=== PATIENT | female | born 1975 | race Caucasian/White ===

== ENCOUNTER → 2017-07-01 | Outpatient (CLI) | payer BC | END | disposition home or self-care (01) | LOC: CDC 10:02 | DX: Z13.6 Encounter for screening for cardiovascular disorders (principal) | CPT/HCPCS: 93000 ==

== ENCOUNTER 2017-12-10 12:02 | Outpatient (CLI) | payer BC ==
[~2017-12-10] VITALS: Ht 165.1 cm; Wt 115.2 kg
[2017-12-10] VITALS (8 sets, daily range): BP systolic 120–145; BP diastolic 69–82
[2017-12-10] MEDS ORDERED: LOW DOSE ASPIRI81 M1 PO (12:40)
[2017-12-10] MEDS ORDERED: IRON325 M1 PO (12:40)
[2017-12-10] MEDS ORDERED: PRENATAL TABLE1 EACH PO (12:41)
[2017-12-10 13:08] LABS: APPEARANCE CLOUDY ((CLEAR)); BILIRUBIN NEGATIVE; BLOOD NEGATIVE; COLOR AMBER ((YELLOW)); GLUCOSE (STRIP) NEGATIVE; KETONES NEGATIVE; LEUKOCYTES NEGATIVE; NITRITE NEGATIVE; PROTEIN (STRIP) 100; SPECIFIC GRAVITY 1.025 (1.000-1.030)
[2017-12-10 13:11] LABS: BASOPHIL (%) 0.4 % (0-1); EOSINOPHIL (%) 2.5 % (0-5); EOSINOPHIL COUNT 0.2 K/uL (0-0.3); HEMATOCRIT 36.5 % (36.0-46.0); HEMOGLOBIN 12.7 G/DL (11.9-15.5); IMMATURE GRANULOCYTE (%) 0.5 % (0.0-0.7); LYMPHOCYTE (%) 11.6 % (15-42); LYMPHOCYTE COUNT 0.9 K/uL (1.0-2.8); MCH 31.4 PG (29.0-34.0); MCHC 34.8 G/DL (30.0-36.0); MCV 90.1 FL (83-99); MONOCYTE (%) 7.1 % (3-12); MONOCYTE COUNT 0.6 K/uL (0-0.8); NEUTROPHIL (%) 77.9 % (45-76); PLATELET COUNT 122 K/uL (156-360); RBC DIS.WIDTH-CV 13.1 % (11.8-14.6); RBC DIS.WIDTH-SD 42.8 % (39-53); RED BLOOD COUNT 4.05 M/uL (3.80-5.20); WHITE BLOOD COUNT 7.8 K/uL (4.1-10.2)
[2017-12-10 13:19] LABS: ALBUMIN 2.7 g/dL (3.2-4.8); CHLORIDE 109 mEq/L (99-109); POTASSIUM 4.1 mEq/L (3.7-5.4); SODIUM 137 mEq/L (136-147)
[2017-12-10 13:21] LABS: GLUCOSE 73 mg/dL (70-99)
[2017-12-10 13:22] LABS: TOTAL PROTEIN 5.4 g/dL (6.4-8.3)
[2017-12-10 13:23] LABS: TOTAL BILIRUBIN 0.3 mg/dL (0.0-1.0)
[2017-12-10 13:25] LABS: ALKALINE PHOSPHATASE 200 IU/L (3-129); CREATININE 0.8 mg/dL (0.6-1.3); GFR ESTIMATE (CALCULATED) > 59 mL/min/
[2017-12-10 13:26] LABS: UREA NITROGEN (BUN) 7 mg/dL (9-23)
[2017-12-10 13:27] LABS: AST (GOT) 22 IU/L (2-34)
[2017-12-10 13:27] LABS: BACTERIA 2+ /HPF; EPITHELIAL CELLS 2+ /HPF; MUCUS NONE SEEN /LPF; RED BLOOD CELLS 0-5 /HPF (0-5); UCUL ADDED? YES; WHITE BLOOD CELLS 0-5 /HPF (0-5)
[2017-12-10 13:28] LABS: ALT (GPT) 10 IU/L (3-49)
[2017-12-11 03:00] VITALS: BP 125/68
[2017-12-11 06:16] LABS: BASOPHIL (%) 0.6 % (0-1); EOSINOPHIL (%) 2.8 % (0-5); EOSINOPHIL COUNT 0.2 K/uL (0-0.3); HEMATOCRIT 34.4 % (36.0-46.0); HEMOGLOBIN 11.5 G/DL (11.9-15.5); IMMATURE GRANULOCYTE (%) 0.6 % (0.0-0.7); LYMPHOCYTE (%) 16.6 % (15-42); LYMPHOCYTE COUNT 1.2 K/uL (1.0-2.8); MCH 30.4 PG (29.0-34.0); MCHC 33.4 G/DL (30.0-36.0); MONOCYTE (%) 8.3 % (3-12); MONOCYTE COUNT 0.6 K/uL (0-0.8); NEUTROPHIL (%) 71.1 % (45-76); NEUTROPHIL COUNT 5.2 K/uL (1.8-6.4); PLATELET COUNT 104 K/uL (156-360); RBC DIS.WIDTH-CV 13.2 % (11.8-14.6); RBC DIS.WIDTH-SD 43.4 % (39-53); RED BLOOD COUNT 3.78 M/uL (3.80-5.20); WHITE BLOOD COUNT 7.3 K/uL (4.1-10.2)
[2017-12-11 06:46] LABS: ALBUMIN 2.3 G/DL (3.2-4.8); ALKALINE PHOSPHATASE 162 IU/L (3-129); ALT (GPT) 7 IU/L (3-49); AST (GOT) 13 IU/L (2-34); CHLORIDE 106 MEQ/L (99-109); GFR ESTIMATE (CALCULATED) > 59 mL/min/; GLUCOSE 57 mg/dL (70-99); POTASSIUM 3.9 MEQ/L (3.7-5.4); SODIUM 136 MEQ/L (136-147); TOTAL BILIRUBIN 0.4 MG/DL (0.0-1.0); TOTAL PROTEIN 4.6 G/DL (6.4-8.3); UREA NITROGEN (BUN) 5 mg/dL (9-23)
[2017-12-11 06:47] LABS: CREATININE 0.3 MG/DL (0.6-1.3)
[2017-12-11 07:42] VITALS: BP 126/74
[2017-12-11 11:32] VITALS: BP 134/77
[2017-12-11 12:20] LABS: BASOPHIL (%) 0.4 % (0-1); EOSINOPHIL (%) 0.4 % (0-5); HEMOGLOBIN 12.8 G/DL (11.9-15.5); IMMATURE GRANULOCYTE (%) 0.5 % (0.0-0.7); LYMPHOCYTE (%) 7.8 % (15-42); LYMPHOCYTE COUNT 0.7 K/uL (1.0-2.8); MCH 30.5 PG (29.0-34.0); MCHC 33.7 G/DL (30.0-36.0); MCV 90.7 FL (83-99); MONOCYTE (%) 2.5 % (3-12); MONOCYTE COUNT 0.2 K/uL (0-0.8); NEUTROPHIL (%) 88.4 % (45-76); NEUTROPHIL COUNT 7.4 K/uL (1.8-6.4); PLATELET COUNT 134 K/uL (156-360); RBC DIS.WIDTH-CV 13.2 % (11.8-14.6); RBC DIS.WIDTH-SD 43.2 % (39-53); RED BLOOD COUNT 4.19 M/uL (3.80-5.20); WHITE BLOOD COUNT 8.4 K/uL (4.1-10.2)
[2017-12-11 14:51] VITALS: BP 124/65
[2017-12-11 18:29] LABS: 24 HR VOLUME 1750 MLS
[2017-12-11 23:43] VITALS: BP 130/72
[2017-12-12 06:08] LABS: BASOPHIL (%) 0.1 % (0-1); EOSINOPHIL (%) 0 % (0-5); HEMATOCRIT 34.7 % (36.0-46.0); HEMOGLOBIN 11.7 G/DL (11.9-15.5); IMMATURE GRANULOCYTE (%) 0.7 % (0.0-0.7); LYMPHOCYTE (%) 8.7 % (15-42); LYMPHOCYTE COUNT 0.9 K/uL (1.0-2.8); MCH 30.5 PG (29.0-34.0); MCHC 33.7 G/DL (30.0-36.0); MCV 90.4 FL (83-99); MONOCYTE (%) 5.5 % (3-12); MONOCYTE COUNT 0.6 K/uL (0-0.8); PLATELET COUNT 121 K/uL (156-360); RBC DIS.WIDTH-SD 42.4 % (39-53); RED BLOOD COUNT 3.84 M/uL (3.80-5.20); WHITE BLOOD COUNT 10.6 K/uL (4.1-10.2)
[2017-12-12 06:41] LABS: ALBUMIN 2.4 G/DL (3.2-4.8); ALKALINE PHOSPHATASE 172 IU/L (3-129); ALT (GPT) 8 IU/L (3-49); AST (GOT) 14 IU/L (2-34); CHLORIDE 104 MEQ/L (99-109); POTASSIUM 4.4 MEQ/L (3.7-5.4); SODIUM 133 MEQ/L (136-147); TOTAL PROTEIN 4.9 G/DL (6.4-8.3); UREA NITROGEN (BUN) 8 mg/dL (9-23)
[2017-12-12 06:45] LABS: CREATININE 0.8 MG/DL (0.6-1.3); GFR ESTIMATE (CALCULATED) > 59 mL/min/; GLUCOSE 90 mg/dL (70-99); TOTAL BILIRUBIN 0.3 MG/DL (0.0-1.0)
== END 2017-12-12 12:15 | disposition home or self-care (01) ==
LOC: LDRP-OP 12:02 → 2WEST 12:03 → LDRP-OP 02-11 17:07
PROVIDERS: Obstetrics & Gynecology
DX: O12.23 Gestational edema with proteinuria, third trimester (principal); O26.893 Other specified pregnancy related conditions, third trimester; R11.2 Nausea with vomiting, unspecified; O30.043 Twin pregnancy, dichorionic/diamniotic, third trimester; O09.513 Supervision of elderly primigravida, third trimester; Z3A.35 35 weeks gestation of pregnancy; Z83.3 Family history of diabetes mellitus
CPT/HCPCS: 59025; 80053; 81003; 81050; 82570; 84156; 85025; 85025 91; 87086; G0378; J0702

== ENCOUNTER 2017-12-25 05:29 | Inpatient (IN) | payer BC ==
[2017-12-25] VITALS (14 sets, daily range): BP systolic 135–181; BP diastolic 77–116
[~2017-12-25] VITALS: Ht 165.1 cm; Wt 120.5 kg
[~2017-12-25 05:29] MED LIST: FOLIC ACID1 MG PO; IRON325 M1 PO; LOW DOSE ASPIRI81 M1 PO; PRENATAL TABLE1 EACH PO
[2017-12-25 06:03] LABS: BASOPHIL (%) 0.4 % (0-1); EOSINOPHIL (%) 1.9 % (0-5); EOSINOPHIL COUNT 0.2 K/uL (0-0.3); IMMATURE GRANULOCYTE (%) 0.6 % (0.0-0.7); LYMPHOCYTE (%) 21.2 % (15-42); LYMPHOCYTE COUNT 1.9 K/uL (1.0-2.8); MCH 31.3 PG (29.0-34.0); MCHC 34.5 G/DL (30.0-36.0); MCV 90.7 FL (83-99); MONOCYTE (%) 7.3 % (3-12); MONOCYTE COUNT 0.7 K/uL (0-0.8); NEUTROPHIL (%) 68.6 % (45-76); NEUTROPHIL COUNT 6.2 K/uL (1.8-6.4); PLATELET COUNT 143 K/uL (156-360); RBC DIS.WIDTH-CV 13.2 % (11.8-14.6); RBC DIS.WIDTH-SD 43.7 % (39-53); RED BLOOD COUNT 4.41 M/uL (3.80-5.20); WHITE BLOOD COUNT 9.1 K/uL (4.1-10.2)
[2017-12-25 06:04] LABS: HEMOGLOBIN 13.8 G/DL (11.9-15.5)
[2017-12-25 06:43] LABS: AMPHETAMINE NEGATIVE (500 ng/mL); BARBITURATES NEGATIVE (200 ng/mL); BENZODIAZEPINES NEGATIVE (150 ng/mL); BUPRENORPHINE NEGATIVE (10 ng/mL); COCAINE NEGATIVE (150 ng/mL); METHADONE NEGATIVE (200 ng/mL); METHAMPHETAMINE NEGATIVE (500 ng/mL); OPIATES (MORPHINE) NEGATIVE (100 ng/mL); OXYCODONE NEGATIVE (100 ng/mL); PHENCYCLIDINE NEGATIVE (25 ng/mL); PROPOXYPHENE NEGATIVE (300 ng/mL); THC CANNABINOIDS NEGATIVE (50 ng/mL); TRICYCLIC ANTIDEPRESSANTS NEGATIVE (300 ng/mL)
[2017-12-25 09:14] LABS: CHLORIDE 109 mEq/L (99-109); POTASSIUM 4.3 mEq/L (3.7-5.4); SODIUM 139 mEq/L (136-147)
[2017-12-25 09:16] LABS: GLUCOSE 68 mg/dL (70-99); TOTAL PROTEIN 6.1 g/dL (6.4-8.3)
[2017-12-25 09:18] LABS: TOTAL BILIRUBIN 0.4 mg/dL (0.0-1.0)
[2017-12-25 09:20] LABS: ALKALINE PHOSPHATASE 235 IU/L (3-129); CREATININE 0.8 mg/dL (0.6-1.3); GFR ESTIMATE (CALCULATED) > 59 mL/min/
[2017-12-25 09:21] LABS: UREA NITROGEN (BUN) 7 mg/dL (9-23)
[2017-12-25 09:22] LABS: AST (GOT) 21 IU/L (2-34)
[2017-12-25 09:23] LABS: ALT (GPT) 14 IU/L (3-49)
[2017-12-25 09:50] LABS: UR CREATININE CONCENTRATION 157.6 MG/DL
[2017-12-26 02:52] VITALS: BP 140/74
[2017-12-26 06:17] LABS: BASOPHIL (%) 0.4 % (0-1); EOSINOPHIL (%) 0.6 % (0-5); EOSINOPHIL COUNT 0.1 K/uL (0-0.3); HEMATOCRIT 33.8 % (36.0-46.0); IMMATURE GRANULOCYTE (%) 0.6 % (0.0-0.7); LYMPHOCYTE (%) 16.4 % (15-42); LYMPHOCYTE COUNT 1.8 K/uL (1.0-2.8); MCH 30.3 PG (29.0-34.0); MCHC 32.5 G/DL (30.0-36.0); MCV 93.1 FL (83-99); MONOCYTE (%) 7.8 % (3-12); MONOCYTE COUNT 0.9 K/uL (0-0.8); NEUTROPHIL (%) 74.2 % (45-76); NEUTROPHIL COUNT 8.1 K/uL (1.8-6.4); PLATELET COUNT 143 K/uL (156-360); RBC DIS.WIDTH-CV 13.6 % (11.8-14.6); RBC DIS.WIDTH-SD 45.6 % (39-53); RED BLOOD COUNT 3.63 M/uL (3.80-5.20); WHITE BLOOD COUNT 10.8 K/uL (4.1-10.2)
[2017-12-26 19:15] VITALS: BP 147/78
[2017-12-26 22:46] VITALS: BP 181/90
[2017-12-26 22:48] VITALS: BP 166/77
[2017-12-27 00:27] VITALS: BP 183/81
[2017-12-27 00:28] VITALS: BP 184/88
[2017-12-27 02:55] VITALS: BP 134/68
[2017-12-27 19:10] VITALS: BP 155/84
[2017-12-27 22:38] VITALS: BP 168/79
[2017-12-27 23:09] VITALS: BP 142/83
[2017-12-28] VITALS (7 sets, daily range): BP systolic 144–165; BP diastolic 70–86
[2017-12-29] VITALS (8 sets, daily range): BP systolic 142–180; BP diastolic 80–90
[2017-12-29 05:57] LABS: HEMATOCRIT 28.4 % (36.0-46.0); HEMOGLOBIN 9.6 G/DL (11.9-15.5); MCH 31.4 PG (29.0-34.0); MCHC 33.8 G/DL (30.0-36.0); MCV 92.8 FL (83-99); PLATELET COUNT 171 K/uL (156-360); RBC DIS.WIDTH-CV 14.1 % (11.8-14.6); RBC DIS.WIDTH-SD 46.9 % (39-53); RED BLOOD COUNT 3.06 M/uL (3.80-5.20); WHITE BLOOD COUNT 5.5 K/uL (4.1-10.2)
[2017-12-29 06:05] LABS: ALBUMIN 2.5 g/dL (3.2-4.8); CHLORIDE 109 mEq/L (99-109); POTASSIUM 3.8 mEq/L (3.7-5.4); SODIUM 140 mEq/L (136-147)
[2017-12-29 06:07] LABS: GLUCOSE 87 mg/dL (70-99)
[2017-12-29 06:11] LABS: CREATININE 0.7 mg/dL (0.6-1.3); GFR ESTIMATE (CALCULATED) > 59 mL/min/
[2017-12-29 06:12] LABS: UREA NITROGEN (BUN) 11 mg/dL (9-23)
[2017-12-29 06:13] LABS: AST (GOT) 29 IU/L (2-34)
[2017-12-29 06:14] LABS: ALT (GPT) 17 IU/L (3-49)
[2017-12-29 06:15] LABS: ALKALINE PHOSPHATASE 120 IU/L (3-129); TOTAL BILIRUBIN 0.3 mg/dL (0.0-1.0); TOTAL PROTEIN 4.8 g/dL (6.4-8.3)
[2017-12-29] MEDS ORDERED: ENDOCET 5-3251 EACH PO (16:48)
[2017-12-29] MEDS ORDERED: IBUPROFEN800 MG PO (16:48)
[2017-12-29] MEDS ORDERED: LABETALOL HCL200 MG PO (16:48)
[2017-12-29] MEDS ORDERED: FUROSEMIDE20 MG PO (16:48)
[2017-12-30 03:15] VITALS: BP 152/84
[2017-12-30 07:49] VITALS: BP 152/90
[2017-12-30 11:19] VITALS: BP 142/86
== END 2017-12-30 13:30 | disposition home or self-care (01) | DRG 765 ==
LOC: 2WEST 05:29 → 2SOUTH 12:23 → 2WEST 12-30 13:30 → 2SOUTH 01-01 10:57
PROVIDERS: Obstetrics & Gynecology
PROC: 10D00Z1 Extraction of Products of Conception, Low, Open Approach (ICD-10-PCS; principal; 2017-12-25)
DX: O32.1XX1 Maternal care for breech presentation, fetus 1 (principal); O30.043 Twin pregnancy, dichorionic/diamniotic, third trimester; O32.8XX2 Maternal care for other malpresentation of fetus, fetus 2; O11.4 Pre-existing hypertension with pre-eclampsia, complicating childbirth; O34.13 Maternal care for benign tumor of corpus uteri, third trimester; D25.2 Subserosal leiomyoma of uterus; O99.824 Streptococcus B carrier state complicating childbirth; O99.214 Obesity complicating childbirth; E66.9 Obesity, unspecified; Z37.2 Twins, both liveborn; Z3A.37 37 weeks gestation of pregnancy
CPT/HCPCS: 80053; 82570; 84156; 85025; 85027; 86850; 86900; 86901; 88307; J0690; J2274; J2405; J7120; S0020

== ENCOUNTER 2018-01-05 15:46 | Outpatient (CLI) | payer BC ==
[2018-01-05] VITALS (28 sets, daily range): BP systolic 121–196; BP diastolic 61–91
[~2018-01-05 15:46] MED LIST changes: +ENDOCET 5-3251 EACH PO; +FUROSEMIDE20 MG PO; +IBUPROFEN800 MG PO; +LABETALOL HCL200 MG PO
[2018-01-05 16:52] LABS: ALBUMIN 3.2 g/dL (3.2-4.8); CHLORIDE 110 mEq/L (99-109); POTASSIUM 4.1 mEq/L (3.7-5.4); SODIUM 142 mEq/L (136-147)
[2018-01-05 16:54] LABS: GLUCOSE 91 mg/dL (70-99); HEMATOCRIT 32.1 % (36.0-46.0); HEMOGLOBIN 10.6 G/DL (11.9-15.5); MCV 93.9 FL (83-99); RBC DIS.WIDTH-CV 13.9 % (11.8-14.6); RBC DIS.WIDTH-SD 46.9 % (39-53); RED BLOOD COUNT 3.42 M/uL (3.80-5.20); WHITE BLOOD COUNT 5.9 K/uL (4.1-10.2)
[2018-01-05 16:56] LABS: TOTAL BILIRUBIN 0.4 mg/dL (0.0-1.0)
[2018-01-05 16:58] LABS: ALKALINE PHOSPHATASE 124 IU/L (3-129); CREATININE 0.8 mg/dL (0.6-1.3); GFR ESTIMATE (CALCULATED) > 59 mL/min/
[2018-01-05 16:59] LABS: UREA NITROGEN (BUN) 11 mg/dL (9-23)
[2018-01-05 17:00] LABS: AST (GOT) 23 IU/L (2-34)
[2018-01-05 17:01] LABS: ALT (GPT) 24 IU/L (3-49)
[2018-01-05 17:25] LABS: UR CREATININE CONCENTRATION 99.1 MG/DL
[2018-01-05 17:46] LABS: PLATELET COUNT 260 K/uL (156-360)
[2018-01-06] VITALS (15 sets, daily range): BP systolic 133–186; BP diastolic 69–88
[2018-01-07 00:30] VITALS: BP 137/70
[2018-01-07 02:32] VITALS: BP 129/74
[2018-01-07 04:31] VITALS: BP 132/68
[2018-01-07 06:31] VITALS: BP 140/73
[2018-01-07 08:40] VITALS: BP 144/77
[2018-01-07 10:55] VITALS: BP 122/68
[2018-01-07] MEDS ORDERED: NIFEDIPINE ER30 MG PO (11:18)
== END 2018-01-07 12:21 | disposition home or self-care (01) ==
LOC: LDRP-OP 15:46 → 2WEST 15:47 → LDRP-OP 02-10 12:21
PROVIDERS: Obstetrics & Gynecology Obstetrics
DX: O15.2 Eclampsia complicating the puerperium (principal); O11.5 Pre-existing hypertension with pre-eclampsia, complicating the puerperium; O99.215 Obesity complicating the puerperium; O99.825 Streptococcus B carrier state complicating the puerperium; Z68.30 Body mass index [BMI] 30.0-30.9, adult; Z98.890 Other specified postprocedural states
CPT/HCPCS: 80053; 82570; 84156; 85027; G0378